=== PATIENT | male | born 1980 | race Two or more races ===

== ENCOUNTER 2021-11-24 11:19 | Inpatient (IN) | payer SELFPAY ==
[~2021-11-24] VITALS: Ht 170.2 cm; Wt 81.6 kg
[2021-11-24 11:19] VITALS: BP 164/103
[2021-11-24] MEDS ORDERED: CLINDAMYCIN 600MG IV 50 ML IV ONE (12:15)
[2021-11-24] MEDS ORDERED: SODIUM CHLORIDE 0.9% 1,000 ML IV ONE (12:15)
[2021-11-24] MEDS ORDERED: SULFAMETH-TRIMETH 80/16MG-ML 15 ML in D5W 5% 500 ML IV ONE (12:15)
[2021-11-24 13:56] LABS: Eosinophils # (auto) 0.3 10 ^3/uL (0-0.8); Eosinophils % (auto) 2.8 % (0.0-7.0); Hemoglobin 15.2 g/dL (13.5-17.5); Neutrophils # (auto) 7.4 10 ^3/uL (1.6-8.6); Nucleated Red Blood Cells % 0.1 %
[2021-11-24 13:59] LABS: Basophils # (auto) 0.2 10 ^3/uL (0-0.2); Basophils % (auto) 1.4 % (0.0-2.0); Hematocrit 45.1 % (41.0-53.0); Lymphocytes % (auto) 18.5 % (10.0-50.0); Mean Corpuscular Hemoglobin 28.5 pg (28.0-32.0); Mean Corpuscular Hgb Conc. 33.6 g/dL (32.0-36.0); Mean Corpuscular Volume 84.7 fL (80.0-100.0); Monocytes # (auto) 0.8 10 ^3/uL (0-1.3); Monocytes % (auto) 7.4 % (0.0-12.0); Neutrophils % (auto) 69.9 % (37.0-80.0); Red Blood Cells 5.33 10^6/uL (4.5-5.90); Red Cell Distribution Width 15.7 % (11.8-14.3); White Blood Cell 10.6 10^3/uL (4.4-10.8)
[2021-11-24 14:13] LABS: Albumin 3.8 g/dL (3.4-5.0); Calcium 9.2 mg/dL (8.5-10.1); Potassium 4.1 mmol/L (3.5-5.1)
[2021-11-24 14:16] LABS: BUN/Creatinine Ratio 13.5; Bilirubin, Total 0.3 mg/dL (0.2-1.0); Total Protein 8.7 g/dL (6.4-8.2)
[2021-11-24] MEDS ORDERED: NITROGLYCERIN 0.4 MG SL TAB SL PRN (16:30)
[2021-11-24] MEDS ORDERED: MORPHINE SULFATE INJECTION 2 MG/ML SYRG IV PRN (16:30)
== END 2021-11-24 18:21 | disposition left against medical advice (07) | DRG 603 ==
LOC: ER 11:19 → TELE 16:16
PROVIDERS: ADMIT Hospitalist; ATTEND Hospitalist
DX: L03.114 Cellulitis of left upper limb (principal); F15.10 Other stimulant abuse, uncomplicated; L02.414 Cutaneous abscess of left upper limb; F17.210 Nicotine dependence, cigarettes, uncomplicated; Z20.822 Contact with and (suspected) exposure to COVID-19
CPT/HCPCS: 36415; 73200; 80053; 83605; 85025; 85652; 87040; 96365; 96367; G0378; J3490